=== PATIENT | female | born 1930 | race Hispanic/Latino ===

== ENCOUNTER 2016-12-03 17:17 | Emergency (ER) | payer MEDICARE, BC ==
[2016-12-03 17:26] VITALS: PULSE 78; RESP 16; TEMP 97.7; O2SAT 98
[2016-12-03] MEDS ORDERED: Mag&Al/Simet/Diphen/Lido 237 ML KIT PO STA (17:52)
--- NOTE | 2016-12-03 17:57 | ED PDOC ---
HPI: CCC, URI, Sore Throat Time Seen by Provider: 12/03/16 17:28 Chief Complaint (Nursing): ENT Problem History Per: Patient (presents with complaints of persistent soreness in the back of the throat, and all around the mouth for the past 1-2 weeks. Patient was seen about [address] Fuchs who prescribed amoxicillin for possible sinus infection. Patient completed 8 days out of 10. She c/o pain on the front part of the roof of her mouth and along with edges of her tongue and on the inside surface of the lower lips. ), Family History/Exam Limitations: no limitations Have you had recent travel within the past 21 days to any of the following countries: [place], [place], [place] or [place]?: No Onset/Duration Of Symptoms: Gradual, Persistent Current Symptoms Are (Timing): Still Present Location Of Pain: Ear(s), Throat, Other (roof of mouth and tongue) Associated Symptoms: Sore Throat, Neck Pain. denies: Fever, Chills, Cough, Sputum, Sinus Drainage, Myalgias, Nasal Congestion, Nausea, Vomiting, Diarrhea Past Medical History Reviewed: Historical Data, Nursing Documentation, Vital Signs Vital Signs: Last Vital Signs Temp 97.7 F 12/03/16 17:21 Pulse 78 12/03/16 17:21 Resp 16 12/03/16 17:21 BP 172/87 H 12/03/16 17:21 Pulse Ox 98 12/03/16 18:08 - Medical History PMH: Anxiety, Diverticulitis, HTN, Hypercholesterolemia Denies: Chronic Kidney Disease - Surgical History Surgical History: Appendectomy - Family History Family History: States: No Known Family Hx - Living Arrangements Living Arrangements: With Family - Home Medications Home Medications: Ambulatory Orders Medication Instructions Recorded Acetaminophen 650 mg PO Q6H PRN 12/11/13 Ascorbic Acid [Vitamin C] 500 mg PO DAILY 12/11/13 Azithromycin [Zithromax Z-Gregory] 250 mg PO DAILY 12/11/13 Docusate Sodium [Colace] 200 mg PO BID 12/11/13 Lorazepam [Ativan] 1 mg PO TID PRN 12/11/13 Metoprolol Succinate [Toprol XL] 50 mg PO DAILY 12/11/13 Multivitamin/Iron/Folic Acid 1 tab PO DAILY 12/11/13 [Centrum Complete Multivit Tab] Simvastatin [Zocor] 20 mg PO HS 12/11/13 Timolol 0.5% Ophth [Timoptic 0.5% 1 drop EACHEYE DAILY 12/11/13 Ophth Soln] guaiFENesin/Dextromethorphan 10 ml PO Q6H PRN 12/11/13 [Robitussin DM] Cholecalciferol [Vitamin D 1000 IU] 1,000 iu PO DAILY #0 tab 12/12/13 LORazepam [Ativan] 1 mg PO TID PRN #0 tab 12/12/13 amLODIPine [Norvasc] 10 mg PO DAILY #0 12/12/13 Lidocaine 2% Viscous 15 ml MM AC PRN #1 bottle 12/03/16 - Allergies Allergies/Adverse Reactions: Allergies Allergy/AdvReac Type Severity Reaction Status Date / Time metronidazole [From Flagyl] AdvReac NAUSEA Verified 12/03/16 17:20 Review of Systems ROS Statement: Except As Marked, All Systems Reviewed And Found Negative Constitutional: Negative for: Fever, Chills ENT: Positive for: Ear Pain, Mouth Pain, Throat Pain. Negative for: Nose Congestion, Throat Swelling Cardiovascular: Negative for: Chest Pain Respiratory: Negative for: Cough, Shortness of Breath Physical Exam - Reviewed Nursing Documentation Reviewed: Yes Vital Signs Reviewed: Yes - Physical Exam Appears: Positive for: Well, Non-toxic, No Acute Distress, Uncomfortable Head Exam: Positive for: ATRAUMATIC, NORMAL INSPECTION, NORMOCEPHALIC Skin: Positive for: Normal Color, Warm, DRY Eye Exam: Positive for: Normal appearance, EOMI, PERRL ENT: Positive for: Pharynx Is (minimally erythematous), TM Is/Are (normal), Other (small patches of redness along the edges of the tongue; one sore on the anterior aspect of roof of mouth.) Neck: Positive for: Normal, Painless ROM, Supple Cardiovascular/Chest: Positive for: Regular Rate, Rhythm Respiratory: Positive for: CNT, Normal Breath Sounds Gastrointestinal/Abdominal: Positive for: Soft Back: Positive for: Normal Inspection Extremity: Positive for: Normal ROM Neurologic/Psych: Positive for: Alert, Oriented - Laboratory Results Result Diagrams: 12/03/16 18:27 12/03/16 18:27 - ECG O2 Sat by Pulse Oximetry: 98 Medical Decision Making Medical Decision Making: feels better after magic mouthwash. labs normal. discussed different OTC treatments for the sores and the postnasal drip. Disposition - Clinical Impression Clinical Impression: Mouth sores - Patient ED Disposition Is Patient to be Admitted: No Doctor Will See Patient In The: Office Counseled Patient/Family Regarding: Diagnosis - Disposition Referrals: Dominick Fuchs MD [Family Provider] - Disposition: Routine/Home Disposition Time: 19:00 Condition: IMPROVED Prescriptions: Lidocaine 2% Viscous 15 ml MM AC PRN #1 bottle PRN Reason: Sore Throat Instructions: Canker Sores (ED) Forms: [facility] (Malay) - POA Present On Arrival: None
[2016-12-03 18:31] LABS: BASO % 0.4 % (0.0-2.0); EOS % 0.5 % (0.0-4.0); HEMATOCRIT 44.6 % (34.0-47.0); LYMPH # 1.4 K/uL (1.0-4.3); LYMPH % 15.2 % (20.0-40.0); MEAN CELL VOLUME 90.2 fl (81.0-99.0); MEAN CORPUSCULAR HEMOGLOBIN 30.6 pg (27.0-31.0); MEAN CORPUSCULAR HGB CONC 33.9 g/dL (33.0-37.0); MEAN PLATELET VOLUME 7.6 fl (7.2-11.7); MONO # 0.7 K/uL (0.0-0.8); MONO % 7.9 % (0.0-10.0); NRBC % 0.1 % (0.0-0.0); RED CELL DISTRIBUTION WIDTH 12.7 % (11.5-14.5); WHITE BLOOD COUNT 9.2 K/uL (4.8-10.8)
[2016-12-03 18:41] LABS: BLOOD UREA NITROGEN 15 mg/dl (7-17); CARBON DIOXIDE 26 mmol/L (22-30); CHLORIDE 97 mmol/L (98-107); GFR AFRICAN-AMERICAN > 60; GLUCOSE,RANDOM 124 mg/dL (65-105); POTASSIUM 4.4 MMOL/L (3.6-5.0); SODIUM 133 mmol/l (132-148)
[2016-12-03 19:21] VITALS: BP 150/84
== END 2016-12-03 19:21 | disposition home or self-care (01) ==
LOC: H.ER 17:17
DX: K13.70 Unspecified lesions of oral mucosa (principal); F41.9 Anxiety disorder, unspecified; I10 Essential (primary) hypertension